=== PATIENT | female | born 1985 | race Caucasian/White ===

== ENCOUNTER 2016-07-25 11:18 | Inpatient (IN) | payer OTHER ==
[2016-08-14 05:30] VITALS: BP 121/80; PULSE 66; RESP 16; TEMP 98; O2SAT 96
[2016-08-14] MEDS ORDERED: metroNIDAZOLE 500 MG INJ 100 ML IV SCH (06:00)
[2016-08-14] MEDS ORDERED: APREPITANT 40 MG CAP PO SCH (06:00)
[2016-08-14] MEDS ORDERED: CHLORHEXIDINE GLUCONATE 2 % 1 PACK (2 CLOTHS) TOPICAL PRN (06:00)
[2016-08-14] MEDS ORDERED: POVIDONE IODINE 5% (ANTISEPSIS KIT) 4 APPLICATIONS EACH NARE PRN (06:00)
[2016-08-14] MEDS ORDERED: ONDANSETRON HCL 4 MG/2 ML VIAL IV PUSH SCH (06:00)
[2016-08-14] MEDS ORDERED: LACTATED RINGER'S 1000 ML IV PRN (06:00)
[2016-08-14] MEDS ORDERED: INSULIN HUMAN REGULAR 1,000 UNITS/10 ML VIAL SQ PRN (06:00)
[2016-08-14] MEDS ORDERED: ceFAZolin 2 GM PREMIX 50 ML IV SCH (06:00)
[2016-08-14] MEDS ORDERED: SODIUM CHLORID 0.9% 500 ML IV PRN (06:00)
[2016-08-14] MEDS ORDERED: ACETAMINOPHEN 1000 MG/100 ML VIAL IV SCH (06:00)
[2016-08-14] MEDS ORDERED: SCOPOLAMINE 1.5 MG PATCH T-DERMAL SCH (06:00)
[2016-08-14] MEDS ORDERED: METOPROLOL TARTRATE 25 MG TAB PO PRN (06:00)
[2016-08-14] MEDS ORDERED: SUGAMMADEX SODIUM 200 MG/2 ML VIAL IV PUSH ONE ×2 (09:39)
[2016-08-14] MEDS ORDERED: FAMOTIDINE 20 MG/2 ML VIAL ONE (09:41)
[2016-08-14] MEDS ORDERED: MIDAZOLAM HCL 2 MG/2 ML VIAL ONE (09:41)
[2016-08-14] MEDS ORDERED: BUPIVACAINE/EPINEPHRINE 0.25% PF 30 ML VIAL ONE (09:42)
[2016-08-14] MEDS ORDERED: METHYLENE BLUE 100 MG/10 ML VIAL OTHER ONE (11:15)
[2016-08-14] MEDS: D5-1/2 NS + KCL 20 MEQ INJ 1,000 ML IV SCH ×3 (12:13→20:51)
[2016-08-14] MEDS ORDERED: MORPHINE SULFATE 30 MG/30 ML PCA IV SCH (12:15)
[2016-08-14] MEDS ORDERED: diphenhydrAMINE HCL ELIXIR 12.5 MG/5 ML CUP PO PRN (12:15)
[2016-08-14] MEDS ORDERED: HYDROmorphone HCL 2 MG TAB PO PRN (12:15)
[2016-08-14] MEDS ORDERED: Post-op Orders (for Pharmacy) MISC OTHER ONE (12:15)
[2016-08-14] MEDS ORDERED: SODIUM CHLORIDE 0.9% FLUSH 10 ML FLUSH IV FLUSH PRN (12:15)
[2016-08-14] MEDS ORDERED: NALOXONE HCL 0.4 MG/ML AMP IV PRN (12:15)
[2016-08-14] MEDS ORDERED: diphenhydrAMINE HCL 50 MG/ML VIAL IV PRN (12:15)
[2016-08-14] MEDS ORDERED: ENALAPRILAT 1.25 MG/ML VIAL IV PUSH PRN (12:15)
[2016-08-14] MEDS ORDERED: DO NOT ADM ANY ANTICOAGULANT DRUGS PRN (12:54)
[2016-08-14] MEDS ORDERED: fentaNYL CITRATE 250 MCG/5 ML AMP ONE (12:59)
[2016-08-14] MEDS ORDERED: NEOSTIGMINE 3 MG/3 ML SYR IV ONE (13:00)
[2016-08-14] MEDS ORDERED: PROPOFOL 200 MG/20 ML AMP IV ONE (13:00)
[2016-08-14] MEDS: METOCLOPRAMIDE HCL 10 MG/2 ML VIAL IV PUSH SCH ×2 (13:00→17:41)
[2016-08-14] MEDS ORDERED: LACTATED RINGER'S 1000 ML INJ 1,000 ML IV ONE (13:01)
[2016-08-14] MEDS ORDERED: *ONDANSETRON 4 MG VIAL PERIprocedural Use ONLY ONE (13:15)
[2016-08-14] MEDS: PCA - TOTAL MG MORPHINE DELIVERED PER SHIFT SCH ×2 (14:00→22:00)
[2016-08-14] MEDS: ONDANSETRON HCL 4 MG/2 ML VIAL IV PRN ×2 (15:22→20:56)
[2016-08-14 16:00] VITALS: BP 143/72; PULSE 88; RESP 16; TEMP 95.5; O2SAT 98
[2016-08-14] MEDS: ENOXAPARIN SODIUM 40 MG/0.4 ML SYRINGE SQ SCH (17:09)
[2016-08-14] MEDS: metroNIDAZOLE 500 MG INJ 100 ML IV SCH (17:10)
[2016-08-14 20:00] VITALS: BP 149/88; PULSE 88; RESP 20; TEMP 97.6; O2SAT 97
[2016-08-14] MEDS: SODIUM CHLORIDE 0.9% FLUSH 10 ML FLUSH IV FLUSH SCH (20:51)
[2016-08-15] VITALS: BP 136/84; PULSE 84; RESP 20; TEMP 96.8; O2SAT 96
[2016-08-15] MEDS: RESP: ALBUTEROL 2.5 MG/3 ML NEB (SCH) INH ×5 (00:03→16:00)
[2016-08-15] MEDS: METOCLOPRAMIDE HCL 10 MG/2 ML VIAL IV PUSH SCH ×2 (01:24→06:02)
[2016-08-15] MEDS: metroNIDAZOLE 500 MG INJ 100 ML IV SCH ×2 (01:24→08:42)
[2016-08-15] MEDS: D5-1/2 NS + KCL 20 MEQ INJ 1,000 ML IV SCH ×4 (01:33→14:53)
[2016-08-15 04:24] VITALS: O2SAT 94
[2016-08-15] MEDS: PCA - TOTAL MG MORPHINE DELIVERED PER SHIFT SCH ×2 (06:00→14:00)
[2016-08-15 06:40] LABS: BICARBONATE 22.4 MEQ/L (21.0-32.0); MAGNESIUM 2.2 MG/DL (1.5-2.5); POTASSIUM 3.5 MEQ/L (3.5-5.1)
[2016-08-15 06:43] LABS: AUTOMATED NEUTROPHIL # 6.1 TH/MM3 (1.8-7.7); BASOPHIL % 0.1 % (0.0-2.0); EOSINOPHIL % 0.5 % (0.0-4.0); HEMATOCRIT 40.2 % (35.0-46.0); HEMO FLAGS DIFF FINAL; LYMPH % 18.3 % (9.0-44.0); LYMPHOCYTE # 1.5 TH/MM3 (1.0-4.8); MEAN CELL VOLUME 79.7 FL (80.0-100.0); MEAN CORPUSCULAR HEMOGLOBIN 25.6 PG (27.0-34.0); MEAN CORPUSCULAR HGB CONC 32.1 % (32.0-36.0); MONO % 5.3 % (0.0-8.0); NEUT % 75.8 % (16.0-70.0); PLATELET COUNT 206 TH/MM3 (150-450); RED BLOOD COUNT 5.04 MIL/MM3 (4.00-5.30); RED CELL DISTRIBUTION WIDTH 14.7 % (11.6-17.2)
[2016-08-15 08:00] VITALS: BP 110/69; PULSE 85; RESP 16; TEMP 98.1; O2SAT 93
[2016-08-15 08:03] VITALS: O2SAT 94
[2016-08-15] MEDS: SODIUM CHLORIDE 0.9% FLUSH 10 ML FLUSH IV FLUSH SCH (08:43)
[2016-08-15] MEDS: ONDANSETRON HCL 4 MG/2 ML VIAL IV PRN (08:56)
[2016-08-15] MEDS ORDERED: PANTOPRAZOLE SOD 40 MG DELAYED RELEASE TAB PO SCH (09:00)
[2016-08-15 12:00] VITALS: BP 102/68; PULSE 73; RESP 16; TEMP 97.5; O2SAT 94
--- NOTE | 2016-08-15 12:11 | HHI.PR ---
Subjective Subjective Notes 31 yo female POD#1 VSG. Seen ambulating the halls. In no acute distress. Tolerating diet well. Denies nausea. Post op tenderness is improving Objective Vitals/I&O Vital Signs Date Time Temp Pulse Resp B/P Pulse Ox O2 Delivery O2 Flow Rate FiO2 08/15/16 08:03 94 21 08/15/16 08:00 98.1 85 16 110/69 08/14/16 14:58 Nasal Cannula 3 Labs Laboratory Tests Test 08/15/16 05:06 White Blood Count 8.0 Red Blood Count 5.04 Hemoglobin 12.9 Hematocrit 40.2 Mean Corpuscular Volume 79.7 Mean Corpuscular Hemoglobin 25.6 Mean Corpuscular Hemoglobin 32.1 Concent Red Cell Distribution Width 14.7 Platelet Count 206 Mean Platelet Volume 9.5 Neutrophils (%) (Auto) 75.8 Lymphocytes (%) (Auto) 18.3 Monocytes (%) (Auto) 5.3 Eosinophils (%) (Auto) 0.5 Basophils (%) (Auto) 0.1 Neutrophils # (Auto) 6.1 Lymphocytes # (Auto) 1.5 Monocytes # (Auto) 0.4 Eosinophils # (Auto) 0.0 Basophils # (Auto) 0.0 CBC Comment DIFF FINAL Differential Comment Hematology Comments Sodium Level 138 Potassium Level 3.5 Chloride Level 108 Carbon Dioxide Level 22.4 Anion Gap 8 Blood Urea Nitrogen 6 Creatinine 0.85 Estimat Glomerular Filtration 78 Rate Random Glucose 113 Calcium Level 8.1 Magnesium Level 2.2 Cardiovascular: Regular Lungs: Clear Abdomen: Post-op tenderness Extremities: Perfused Wound Wound : Wound Location: Abdomen Appearance: Clean & Dry A/P Assessment and Plan Continue with frequent ambulation Continue to increase fluids as tolerated Continue to use IS, deep breath and cough The exam, history, and the medical decision-making described in the above note were completed with the assistance of the mid-level provider. I reviewed and agree with the findings presented. I attest that I had a [id number] encounter with the patient on the same day, and personally performed and documented my assessment and findings in the medical record. Discharge Planning D/C home today Amanda Del Angelcraig CARREON August 15, 2016 12:11 Louis Zambrano MD August 18, 2016 09:02
[2016-08-15] MEDS ORDERED: METOCLOPRAMIDE HCL 10 MG/2 ML VIAL IV PUSH PRN (12:15)
[2016-08-15 16:00] VITALS: BP 112/60; PULSE 83; RESP 16; TEMP 97.8; O2SAT 96
[2016-08-15] MEDS: ENOXAPARIN SODIUM 40 MG/0.4 ML SYRINGE SQ SCH (17:46)
--- NOTE | 2016-08-18 18:41 | MP ---
cc: TONJA ZAMBRANO DATE OF SURGERY: 08/14/2016. PREOPERATIVE DIAGNOSIS: Morbid obesity with a BMI of 45. POSTOPERATIVE DIAGNOSIS: Morbid obesity with a BMI of 45. OPERATIVE PROCEDURE PERFORMED: Laparoscopic vertical sleeve gastrectomy over a 36-Q[place] ViSiGi bougie. SURGEON Tonja Zambrano MD. MANAGER INTERVENTIONAL: Kevin August MD. NOTE: Dr. August was necessary for assistance during the entire procedure due to the complexity of the operation. Dr. August was necessary for manipulation and exposure during the operation. The assistant boys track coach provided by the hospital was utilized at the back table and in the camera during the operation. ANESTHESIA: General endotracheal anesthesia. ESTIMATED BLOOD LOSS: Scant. FINDINGS: Fatty liver. SPECIMENS: None. COMPLICATIONS: None. DESCRIPTION OF THE PROCEDURE IN DETAIL: The patient was brought to the operating room, placed on operating table in a supine position. Bilateral sequential inflation device placed on the lower extremities. General anesthesia instituted. The abdomen was prepped and draped sterilely. A point 15 cm distal to the xiphoid in the midline anesthetized with 0.25% Marcaine with epinephrine. A skin incision was made. A 5 mL OptiView port placed under direct vision and pneumoperitoneum created. Under direct vision, two 5 mm left lower quadrant, a 15 mm right upper quadrant and a 5 mm right upper quadrant ports were placed. Prior to placement of all ports, the skin and peritoneum anesthetized with 0.25% Marcaine with epinephrine. The patient was placed in reverse Trendelenburg position left side up. The Marlin-flex retractor was placed. The left lobe of the liver was retracted. The vasculature along the greater curve of the stomach was taken down using the harmonic scalpel starting at a distance 5 cm proximal to the pylorus and carried towards the angle of His. The posterior ligamentous attachments sharply . There was a hiatal hernia identified. The left and right crura of the diaphragm was dissected. The GE junction was mobilized into the abdominal cavity. The hernia sac was excised. The crura of the diaphragm was approximated with 0-silk suture in a [id number] manner. The 36-Q[place] ViSiGi bougie was placed at the beginning of the case. It was placed on suction. Division of the stomach started 5 cm proximal to the pylorus and this was carried towards the angle of His to completely excise approximately 80% of the stomach. This was performed using an echelon flex stapler. The first firing was with a black load, followed by a green load and two gold loads. All staple loads were reinforced with Seamguard. A distance of 2 cm was left from the angle incisura and the staple line. A distance of 1 cm left from the GE junction and the staple line. The bougie was then removed. Methylene blue was then instilled through the OG tube after occluding the pylorus. There was no evidence of extravasation. The gastrocolic ligament was then sutured to the posterior leaflet of the SeamGuard using a 2-0 Vicryl suture in a running manner for the entire staple line. The bleeding points were controlled with Evicel. The excised stomach was removed from the peritoneal cavity in an Endopouch through the 15 mm port site. The fascia at the 15 mm port site approximated using an 0-Vicryl suture. The abdominal wall was then cleaned and a sterile dressing placed. The patient was awakened and taken to the recovery room. MD WING Veras/MICHAEL /12:18 PM /6:31 PM
== END 2016-08-15 19:30 | disposition home or self-care (01) | DRG 621 ==
LOC: HSDI 08-14 05:19 → N07A 08-14 15:19
PROVIDERS: ADMIT Surgery; ATTEND Surgery
PROC: 0DB64Z3 Excision of Stomach, Percutaneous Endoscopic Approach, Vertical (ICD-10-PCS; principal; 2016-08-14 10:29)
DX: E66.01 Morbid (severe) obesity due to excess calories (principal); F41.8 Other specified anxiety disorders; K21.9 Gastro-esophageal reflux disease without esophagitis; M17.0 Bilateral primary osteoarthritis of knee
CPT/HCPCS: 76937; 80048; 83735; 85025; 94150; 94640; 94664; J0131; J0690; J1650; J2250; J2270; J2405; J2710; J2765; J3010; J3480; J7120; J7613; J8501